=== PATIENT | male | born 1980 | race Caucasian/White ===

== ENCOUNTER 2016-07-03 20:14 | Emergency (ER) | payer SELFPAY ==
--- NOTE | 2016-07-03 20:24 | EDPRACDOC ---
- General Information Home Medications: Home Medications Aspirin (Enteric Coated) [Halfprin] 81 mg PO DAILY #90 tab 09/08/15 Pantoprazole Sodium [Protonix] 40 mg PO BID 02/09/16 Varenicline Tartrate [Chantix] 1 mg PO DAILY 02/09/16 Acetaminophen Tablet [TYLENOL Tablet] 650 mg PO Q6H PRN #100 tablet 02/17/16 Albuterol/Ipratropium Neb [Duoneb] 3 ml NEB Q2H PRN #120 nebu 02/17/16 Insulin Glargine [Lantus Pen] 30 unit SQ HS #1 02/17/16 Insulin, Regular [Humulin R] 15 units SQ TIDAC #1 vial 02/17/16 Nicotine [Nicoderm] 21 mg TOP Q24H #30 pat 02/17/16 Ondansetron HCl [Zofran] 4 mg PO Q8H PRN #15 tab 03/29/16 Promethazine HCl [Phenergan] 25 mg VA Q8H PRN #12 supp 03/29/16 Dicyclomine HCl [Bentyl] 10 mg PO Q6H PRN 05/30/16 Metoclopramide HCl [Reglan] 10 mg PO TID PRN 05/30/16 Promethazine [Phenergan] 25 mg PO Q6 PRN #10 tab 05/30/16 Allergies/Adverse Reactions: Allergies Allergy/AdvReac Type Severity Reaction Status Date / Time Penicillins Allergy Nausea/Vomi Verified 02/15/16 18:38 ting - 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 PER EMS BYSTANDERS REPORTED THAT PT HAS A LOT OF DIFFICULTY CONTROLLING BLOOD SUGAR, STATES BLOOD SUGAR IS "ALWAYS HIGH", STATES RECENTLY IN [place] WITH BLOOD SUGAR OF "2100" PER BYSTANDERS. ED Past Medical History - History Reviewed Yes Nurses notes reviewed and agree except as marked - Patient Medical History Cardiac History: Reports: Hypertension (Not on any antihypertensive medication with normal blood pressure.) Respiratory History: Reports: COPD (Not currently on any COPD medications.) GI/ History: Reports: Gastroesophageal Reflux Psychological History: Denies: Depression, Substance Use Disorder Systemic History: Reports: Diabetes (IDDM type 1 since 19 years of age. Frequent DKA.) Surgical History: Reports: Other (trigger-finger release R hand; wisdom teeth removed) - Family Medical History Reports: Hypertension (DAD; SISTER), Diabetes (SELF), Stroke (DAD), Cardiac Disorders (DAD; SISTER), Respiratory Disorders (Mother with COPD). Denies: Cancer - Social Medical History Smoking Status: Heavy tobacco smoker (5 or more cigarettes/day or daily pipe/ cigar) Social History: Denies: Substance Use Disorder ETOH: None Substance Abuse: None EDM Review of Systems - Review of Systems Constitutional: negative: Chills, Fever Eyes: negative: Blurred Vision, Double Vision Ears: negative: Drainage Throat: negative: Pain Nose: negative: Congestion, Discharge Respiratory: negative: Cough, Shortness of Breath, Wheezing Cardiovascular: negative: Chest Pain, Palpitations Gastrointestinal: negative: Diarrhea, Nausea, Pain, Vomiting Genitourinary: negative: Dysuria, Frequency Neurological: Changes in Orientation. negative: Dizziness, Headache, Numbness, Weakness Musculoskeletal: No Symptoms Reported Integumentary: No Symptoms Reported - Physical Exam Constitutional: Alert (Awake), No apparent distress Oriented to: Time, Person, Place Last recorded Vital Signs: Oxygen Pulse Oxygen Saturation O2 Device Oxygen Flow Rate Fraction of Inspired Oxygen ( FIO2) - HEENT Head: Normal ( normocephalic) Eye Exam: Normal (PERRL, EOMI, Sclera white) Oropharynx: Normal (Pharynx:Moist without exudate,Gums-no swelling) Tympanic Membrane: Normal ENT EAC: Normal TMJ: Normal Nose: No Symptoms Reported (septum midline) Neck: Normal (FROM, trachea at midline) - Respiratory/Cardiovascular Respiratory: Normal - CTA (BBS clear to auscultation without adventitious sounds ) Cardiovascular: Normal (RRR without murmur, gallop or rub) - GI Auscultation: Normal (NABS) Palpation: Normal (Soft,No rebound or guarding, non distended) Tenderness: Non tender Celaya's Sign: Negative - Musculoskeletal Back: Normal (Non-Tender) Extremities: Normal (Normal tone, Pulses 2+ No cyanosis or edema, FROM) - Integumentary Skin: Normal, Warm, Dry Lymphatics: Normal (no adenopathy) - Neurologic Memory Impaired: Normal Motor Function: Normal (Normal tone, Pulses 2+ No cyanosis or edema, FROM) Cranial Nerve: Normal (CN II-X11 intact sensation, strength 5/5) Cerebellar: Normal Mood Description: Normal Perception: Normal - Differential Diagnosis Dehydration, Diabetic Ketoacidosis, Gastritis, Gastroenteritis, Hyperglycemia, Hypoglycemia, UTI - Re-evaluation Re-evaluation 1 Re-evaluation Time: 22:06 (AROUSES TO NAME) Re-evaluation 2 Re-evaluation Time: 00:03 (ALERT AND ORIENTED, STATES WANTS TO GO HOME) - Results 07/03/16 20:51 07/03/16 20:51 07/04/16 00:03 Laboratory Results - last 24 hr 07/03/16 07/03/16 07/03/16 20:26 20:51 20:51 WBC 5.4 RBC 4.67 L Hgb 14.4 Hct 42.2 MCV 90 MCH 30.9 MCHC 34.2 RDW 13.5 Plt Count 196 MPV 8.6 Neut % (Auto) 70.2 Lymph % (Auto) 18.5 [place] % (Auto) 9.2 Eos % (Auto) 1.6 Baso % (Auto) 0.5 Absolute Neuts (auto) 3.78 Absolute Lymphs (auto) 0.97 PT INR APTT Sodium 138 Potassium 4.0 Chloride 103 Carbon Dioxide 29 Anion Gap 10 BUN 8 L Creatinine 0.60 L Estimated GFR (MDRD) > 60 Glucose 87 POC Capillary Glucose 97 Calculated Osmolality 263 L Calcium 8.6 Corrected Calcium 9.2 Total Bilirubin 0.7 AST 44 ALT 44 Alkaline Phosphatase 80 Troponin I < 0.01 [id number] Pept 29 Total Protein 6.5 Albumin 3.4 L Salicylates < 1.0 Acetaminophen < 10.0 07/03/16 07/03/16 20:51 21:45 WBC RBC Hgb Hct MCV MCH MCHC RDW Plt Count MPV Neut % (Auto) Lymph % (Auto) [place] % (Auto) Eos % (Auto) Baso % (Auto) Absolute Neuts (auto) Absolute Lymphs (auto) PT 11.2 INR 1.1 APTT 29.1 Sodium Potassium Chloride Carbon Dioxide Anion Gap BUN Creatinine Estimated GFR (MDRD) Glucose POC Capillary Glucose 198 H Calculated Osmolality Calcium Corrected Calcium Total Bilirubin AST ALT Alkaline Phosphatase Troponin I [id number] Pept Total Protein Albumin Salicylates Acetaminophen - EKG EKG #1 EKG Time: 20:46 -: Yes EKG interpreted by me Rate: bpm: 82 [place]: Normal Rhythm: NSR Block: None Hypertrophy: None ST: Nonsp Comparison: 03/28/16 (NO CHANGE) Decision Time to Discharge: 00:03 - Departure Disposition: Home Condition: Stable Final Diagnosis: Altered mental status Qualifiers: Altered mental status type: unspecified Qualified Code(s): R41.82 - Altered mental status, unspecified Diabetes mellitus Qualifiers: Diabetes mellitus type: type 1 Diabetes mellitus complication status: without complication Qualified Code(s): E10.9 - Type 1 diabetes mellitus without complications Instructions: Diabetes Mellitus Type 1 in Adults (ED) Referrals: None,No Provider [Primary Care Provider] - One Week Prescriptions: Continue Aspirin (Enteric Coated) [Halfprin] 81 mg PO DAILY #90 tab Pantoprazole Sodium [Protonix] 40 mg PO BID Varenicline Tartrate [Chantix] 1 mg PO DAILY Acetaminophen Tablet [TYLENOL Tablet] 650 mg PO Q6H PRN #100 tablet PRN Reason: Mild Pain Or Fever Above 100.4 Albuterol/Ipratropium Neb [Duoneb] 3 ml NEB Q2H PRN #120 nebu PRN Reason: Wheezing Insulin Glargine [Lantus Pen] 30 unit SQ HS #1 Nicotine [Nicoderm] 21 mg TOP Q24H #30 pat Insulin, Regular [Humulin R] 15 units SQ TIDAC #1 vial Ondansetron HCl [Zofran] 4 mg PO Q8H PRN #15 tab PRN Reason: Nausea/Vomiting Promethazine HCl [Phenergan] 25 mg VA Q8H PRN #12 supp PRN Reason: Nausea/Vomiting Dicyclomine HCl [Bentyl] 10 mg PO Q6H PRN PRN Reason: Abdominal Pain Metoclopramide HCl [Reglan] 10 mg PO TID PRN PRN Reason: Nausea/Vomiting Promethazine [Phenergan] 25 mg PO Q6 PRN #10 tab PRN Reason: Nausea/Vomiting Forms: Patient Discharge Instructions, ED Discharge Instructions Additional Instructions: REST, DRINK PLENTY OF FLUIDS, TAKE ALL OF YOUR MEDICATIONS BEFORE, RETURN TO THE ED FOR ANY WORSENING SYMPTOMS OR CONCERNS.
[2016-07-03] MEDS ORDERED: NS 1,000 ML IV ONE (20:26)
[2016-07-03 20:33] VITALS: TEMP 97.4; BMI 23.0
[2016-07-03 20:59] LABS: AUTOMATED BASOPHIL 0.5 % (0-2); AUTOMATED EOSINOPHIL 1.6 % (0-5); AUTOMATED LYMPH 18.5 % (17-44); AUTOMATED MONOCYTE 9.2 % (3-10); AUTOMATED NEUTROPHIL 70.2 % (45-76); MPV 8.6 fL (7.4-10.4)
[2016-07-03 21:14] LABS: BLOOD UREA NITROGEN 8 MG/DL (9-20); CALC CORRECTED 9.2 MG/DL (8.4-10.2); CALCIUM 8.6 MG/DL (8.4-10.2); CALCULATED OSMOLALITY 263 MOs/Kg (270-290); CHLORIDE 103 mEq/L (98-107); GLUCOSE 87 MG/DL (70-99); SODIUM LEVEL 138 mEq/L (137-146); TOTAL PROTEIN 6.5 G/DL (6.3-8.2)
--- NOTE | 2016-07-03 21:19 | DIRPT ---
CLINICAL DATA: Altered mental status. Combative and aggressive behavior. Uncontrolled diabetes. EXAM: CT HEAD WITHOUT CONTRAST TECHNIQUE: Contiguous axial images were obtained from the base of the skull through the vertex without intravenous contrast. COMPARISON: 10/20/2015 FINDINGS: No evidence of intracranial hemorrhage, brain edema, or other signs of acute infarction. No evidence of intracranial mass lesion or mass effect. No abnormal extraaxial fluid collections identified. Ventricles are normal in size. No skull abnormality identified. IMPRESSION: Negative noncontrast head CT. Electronically Signed By: Jose Joseph M.D. On: 07/03/2016 21:17
[2016-07-03 21:31] LABS: PARTIAL THROMB. TIME 29.1 SEC (22-35); PT-INR 1.1
--- NOTE | 2016-07-03 21:42 | DIRPT ---
CLINICAL DATA: Altered mental status. EXAM: PORTABLE CHEST 1 VIEW COMPARISON: 03/28/2016 FINDINGS: The heart size and mediastinal contours are within normal limits. Both lungs are clear. The visualized skeletal structures are unremarkable. IMPRESSION: No active disease. Electronically Signed By: Jose Joseph M.D. On: 07/03/2016 21:40
[2016-07-04] LABS: ALL NEG? NO
[2016-07-04 00:08] LABS: LEUKOCYTES/URINE NEG (NEGATIVE); MDMA* NEG (NEGATIVE); METHAMPHETAMINES *POSITIVE* (NEGATIVE); NITRITE/URINE NEG (NEGATIVE); OXYCODONE *POSITIVE* (NEGATIVE); RBC/URINE 0-2 (0-2); URINE OCCULT BLOOD NEG (NEG/TRACE); WBC/URINE 0-2 (0-2)
[2016-07-04 00:38] VITALS: BP 151/71; PULSE 101
[2016-07-04] MEDS ORDERED: LORAZEPAM 2 MG/ML VIAL ONE (02:25)
[2016-07-04] MEDS ORDERED: HALOPERIDOL 5 MG/ML VIAL ONE (02:25)
== END 2016-07-04 00:34 | disposition home or self-care (01) ==
LOC: ED 20:14
DX: E10.9 Type 1 diabetes mellitus without complications (principal); R41.82 Altered mental status, unspecified
CPT/HCPCS: 36415; 70450; 71010; 80053; 80307; 80329; 81001; 82962; 83880; 84484; 85025; 85610; 85730; 93005; 96360; 96361; 99283; J1630; J2060

== ENCOUNTER 2016-07-04 02:20 | Emergency (ER) | payer SELFPAY ==
[2016-07-04 02:25] VITALS: BMI 23.0
[2016-07-04] MEDS ORDERED: NS 1,000 ML IV ONE ×2 (02:29→03:52)
[2016-07-04] MEDS ORDERED: HALOPERIDOL 5 MG/ML VIAL IM ONE (02:30)
[2016-07-04] MEDS ORDERED: LORAZEPAM 2 MG/ML VIAL IM ONE (02:30)
--- NOTE | 2016-07-04 02:43 | EDPRACDOC ---
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 HE WAS INITIALLY HERE FOR CONFUSION AND COMBATIVE BEHAVIOR. HIS DRUG SCREEN WAS + FOR METH. PT WAS AWAKE AND ALERT WHEN D/C'D AND REQUESTED TO GO HOME. PT WAS FOUND WANDERING AROUND UPSTAIRS IN THE HOSPITAL. WHEN THE CHARGE NURSE CONFRONTED HIM, HE BECAME COMBATIVE AND AGITATED AGAIN. SECURITY AND ED STAFF HAD TO HOLD HIM DOWN TO PLACE HANDCUFFS AND RESTRAINTS DUE TO HIS AGITATION. PT UNABLE TO GIVE ANY HX. Symptoms began: Suddenly Duration: Since Onset Relevant History: Reports: Diabetes <Lin Muniz - Last Filed: 07/04/16 03:06> <Ernestine Chin - Last Filed: 07/04/16 08:21> - General Information Stated Complaint: OVERDOSE/VERY COMBATIVE Time Seen by Provider: 07/04/16 02:28 Home Medications: Home Medications Aspirin (Enteric Coated) [Halfprin] 81 mg PO DAILY #90 tab 09/08/15 Pantoprazole Sodium [Protonix] 40 mg PO BID 02/09/16 Varenicline Tartrate [Chantix] 1 mg PO DAILY 02/09/16 Acetaminophen Tablet [TYLENOL Tablet] 650 mg PO Q6H PRN #100 tablet 02/17/16 Albuterol/Ipratropium Neb [Duoneb] 3 ml NEB Q2H PRN #120 nebu 02/17/16 Insulin Glargine [Lantus Pen] 30 unit SQ HS #1 02/17/16 Insulin, Regular [Humulin R] 15 units SQ TIDAC #1 vial 02/17/16 Nicotine [Nicoderm] 21 mg TOP Q24H #30 pat 02/17/16 Ondansetron HCl [Zofran] 4 mg PO Q8H PRN #15 tab 03/29/16 Promethazine HCl [Phenergan] 25 mg PA Q8H PRN #12 supp 03/29/16 Dicyclomine HCl [Bentyl] 10 mg PO Q6H PRN 05/30/16 Metoclopramide HCl [Reglan] 10 mg PO TID PRN 05/30/16 Promethazine [Phenergan] 25 mg PO Q6 PRN #10 tab 05/30/16 Allergies/Adverse Reactions: Allergies Allergy/AdvReac Type Severity Reaction Status Date / Time Penicillins Allergy Nausea/Vomi Verified 02/15/16 18:38 ting ED Past Medical History - Patient Medical History Cardiac History: Reports: Hypertension (Not on any antihypertensive medication with normal blood pressure.) Respiratory History: Reports: COPD (Not currently on any COPD medications.) GI/ History: Reports: Gastroesophageal Reflux Psychological History: Denies: Depression, Substance Use Disorder Systemic History: Reports: Diabetes (IDDM type 1 since 19 years of age. Frequent DKA.) Surgical History: Reports: Other (trigger-finger release R hand; wisdom teeth removed) - Family Medical History Reports: Hypertension (DAD; SISTER), Diabetes (SELF), Stroke (DAD), Cardiac Disorders (DAD; SISTER), Respiratory Disorders (Mother with COPD). Denies: Cancer - Social Medical History Smoking Status: Heavy tobacco smoker (5 or more cigarettes/day or daily pipe/ cigar) Social History: Reports: Amphetamine Use. Denies: Substance Use Disorder ETOH: None Substance Abuse: Illicit Drugs Lives In: Home <Lin Muniz - Last Filed: 07/04/16 03:06> EDM Review of Systems - Review of Systems ROS Unobtainable: Yes Review of systems cannot be obtained due to the patient's medical condition <Lin Muniz - Last Filed: 07/04/16 03:06> - Physical Exam Constitutional: Agitated, Uncooperative, Writhing Oriented to: Unable to Test Last recorded Vital Signs: Oxygen Pulse Oxygen Saturation O2 Device Oxygen Flow Rate Fraction of Inspired Oxygen ( FIO2) - HEENT Head: Normal ( normocephalic) Eye Exam: Normal (PERRL, EOMI, Sclera white) Oropharynx: Normal (Pharynx:Moist without exudate,Gums-no swelling) ENT EAC: Normal TMJ: Normal Nose: No Symptoms Reported (septum midline) Neck: Normal (FROM, trachea at midline) - Respiratory/Cardiovascular Respiratory: Normal - CTA Cardiovascular: Tachycardia - GI Auscultation: Normal (NABS) Palpation: Normal (Soft,No rebound or guarding, non distended) Tenderness: Non tender Celaya's Sign: Negative - Musculoskeletal Back: Normal (Non-Tender) Extremities: Normal (Normal tone, Pulses 2+ No cyanosis or edema, FROM) - Integumentary Skin: Other (SKIN PICKING SCARS ALL OVER FACE) Lymphatics: Normal - Neurologic Memory Impaired: Unable to Test Motor Function: Normal Cranial Nerve: Unable to Test Cerebellar: Unable to Test Mood Description: Agitated, Combative <Lin Muniz - Last Filed: 07/04/16 03:06> - Physical Exam Last recorded Vital Signs: Last Vital Signs Temp 97.3 F L 07/04/16 02:25 Pulse 95 07/04/16 06:02 Resp 20 07/04/16 06:02 BP 121/79 07/04/16 06:02 Pulse Ox 97 07/04/16 06:02 Oxygen Pulse Oxygen Saturation 97 O2 Device Room Air Oxygen Flow Rate Fraction of Inspired Oxygen ( FIO2) <Ernestine Chin - Last Filed: 07/04/16 08:21> - Results 07/04/16 02:50 07/04/16 02:50 - EKG EKG #1 EKG Time: 02:59 -: Yes EKG interpreted by me Rate: bpm: 99 [place]: Normal Rhythm: NSR Block: None Hypertrophy: None ST: Normal <Lin Muniz - Last Filed: 07/04/16 03:06> - Re-evaluation Re-evaluation 2 Re-evaluation Time: 07:10 (I ASSUMED CARE FROM DR MUNIZ AT 0700. HISTORY OF AGITATION AND AMS ASSOC WITH METH / OXY ABUSE AND DM / HYPOGLYCEMIA. POOR PO INTAKE, RECURRENT HYPOGLYCEMIA. ) SLEEPING, VITALS WNL. AROUSES SOMEWHAT, BUT STILL SOMNELENT. HEENT: NC/AT, NO BRUISING OR ECCHYMOSIS. Re-evaluation 3 Re-evaluation Time: 08:18 (AMBULATE TO THE RESTROOM WITHOUT DIFFICULTY. NOW SITTING UP IN BED EATING A MEAL. NO COMPLAINTS.) General: Pleasant MALE No acute distress. Neuro: Alert Oriented, calm and cooperative HEENT: Normocephalic atraumatic. Sclerae nonicteric. Extraocular movements intact. Oral mucosa pink and moist. Neck: Supple. Nontender. Good range of motion. No masses. Trachea is midline. No cervical adenopathy. Lungs: Clear to auscultation. No rhonchi or wheezing. Heart: Regular rate and rhythm. No murmur. Abdomen: Soft, nontender, nondistended. No hepatosplenomegaly. No abdominal wall defects or masses. No guarding or rebound. Extremities: no cyanosis clubbing or edema. No palpable deformities. Skin: Warm and dry, no rashes AMS / DELERIUM RESOLVED. HYPOGLYCEMIA RESOLVED. SAFE FOR DISCHARGE. - Results 07/04/16 02:50 07/04/16 04:13 WBC 6.1 xk/uL (3.8-10.8) 07/04/16 02:50 RBC 4.73 xM/uL (4.70-6.10) 07/04/16 02:50 Hgb 14.6 g/dL (14.0-18.0) 07/04/16 02:50 Hct 43.8 % (42-52) 07/04/16 02:50 MCV 93 fL (80-94) 07/04/16 02:50 MCH 30.9 pg (27-32) 07/04/16 02:50 MCHC 33.4 g/dl (33-36) 07/04/16 02:50 RDW 13.7 % (11.5-14.5) 07/04/16 02:50 Plt Count 211 xk/uL (130-400) 07/04/16 02:50 MPV 8.6 fL (7.4-10.4) 07/04/16 02:50 Neut % (Auto) 68.3 % (45-76) 07/04/16 02:50 Lymph % (Auto) 20.4 % (17-44) 07/04/16 02:50 Yell % (Auto) 9.4 % (3-10) 07/04/16 02:50 Eos % (Auto) 1.2 % (0-5) 07/04/16 02:50 Baso % (Auto) 0.7 % (0-2) 07/04/16 02:50 Absolute Neuts (auto) 4.15 xk/uL (1.7-8.2) 07/04/16 02:50 Absolute Lymphs (auto) 1.22 xk/uL (0.65-4.75) 07/04/16 02:50 Sodium 139 mEq/L (137-146) 07/04/16 04:13 Potassium 4.0 mEq/L (3.5-5.1) 07/04/16 04:13 Chloride 108 mEq/L (98-107) H 07/04/16 04:13 Carbon Dioxide 24 mMOL/L (22-33) 07/04/16 04:13 Anion Gap 11 mEq/L (8-16) 07/04/16 04:13 BUN 7 MG/DL (9-20) L 07/04/16 04:13 Creatinine 0.60 MG/DL (0.66-1.25) L 07/04/16 04:13 Estimated GFR (MDRD) > 60 mL/min (>=60) 07/04/16 04:13 Glucose 88 MG/DL (70-99) 07/04/16 04:13 POC Capillary Glucose 56 MG/DL (70-99) L 07/04/16 06:18 Calculated Osmolality 265 MOs/Kg (270-290) L 07/04/16 04:13 Calcium 8.0 MG/DL (8.4-10.2) L 07/04/16 04:13 Corrected Calcium 9.1 MG/DL (8.4-10.2) 07/04/16 02:50 Total Bilirubin 0.6 MG/DL (0.2-1.3) 07/04/16 02:50 AST 48 IU/L (17-59) 07/04/16 02:50 ALT 40 IU/L (21-72) 07/04/16 02:50 Alkaline Phosphatase 87 IU/L (38-126) 07/04/16 02:50 Total Protein 7.0 G/DL (6.3-8.2) 07/04/16 02:50 Albumin 3.9 G/DL (3.5-5.0) 07/04/16 02:50 Plasma/Serum Ethyl Alc % (<0.01) 07/04/16 02:50 Lab Results 07/04/16 07/04/16 07/04/16 06:18 05:13 04:13 WBC RBC Hgb Hct MCV MCH MCHC RDW Plt Count MPV Neut % (Auto) Lymph % (Auto) Yell % (Auto) Eos % (Auto) Baso % (Auto) Absolute Neuts (auto) Absolute Lymphs (auto) Sodium 139 Potassium 4.0 Chloride 108 H Carbon Dioxide 24 Anion Gap 11 BUN 7 L Creatinine 0.60 L Estimated GFR (MDRD) > 60 Glucose 88 POC Capillary Glucose 56 L 51 L Calculated Osmolality 265 L Calcium 8.0 L Corrected Calcium Total Bilirubin AST ALT Alkaline Phosphatase Total Protein Albumin Plasma/Serum Ethyl Alc 07/04/16 07/04/16 07/04/16 02:50 02:50 02:35 WBC 6.1 RBC 4.73 Hgb 14.6 Hct 43.8 MCV 93 MCH 30.9 MCHC 33.4 RDW 13.7 Plt Count 211 MPV 8.6 Neut % (Auto) 68.3 Lymph % (Auto) 20.4 Yell % (Auto) 9.4 Eos % (Auto) 1.2 Baso % (Auto) 0.7 Absolute Neuts (auto) 4.15 Absolute Lymphs (auto) 1.22 Sodium 143 Potassium 3.9 Chloride 105 Carbon Dioxide 16 L Anion Gap 26 H BUN 7 L Creatinine 0.70 Estimated GFR (MDRD) > 60 Glucose 39 L* POC Capillary Glucose 69 L Calculated Osmolality 270 Calcium 9.0 Corrected Calcium 9.1 Total Bilirubin 0.6 AST 48 ALT 40 Alkaline Phosphatase 87 Total Protein 7.0 Albumin 3.9 Plasma/Serum Ethyl Alc <GiuseppeErnestine N - Last Filed: 07/04/16 08:21> <Lin Muniz - Last Filed: 07/04/16 03:06> - Departure Disposition: Home Education/Counseling Given To: Patient Education/Counseling Given Regarding: Diagnosis, Treatment, Prognosis <ChinErnestine N - Last Filed: 07/04/16 08:21> - Departure Final Diagnosis: Hypoglycemia associated with diabetes, Methamphetamine abuse Altered mental status, unspecified Qualifiers: Altered mental status type: delirium Qualified Code(s): R41.0 - Disorientation , unspecified Instructions: Managing Diabetes During Sick Days (ED), Diabetes and Exercise, Accidental Overdose Referrals: None,No Provider [Primary Care Provider] - One Week Prescriptions: No Action Aspirin (Enteric Coated) [Halfprin] 81 mg PO DAILY #90 tab Pantoprazole Sodium [Protonix] 40 mg PO BID Varenicline Tartrate [Chantix] 1 mg PO DAILY Acetaminophen Tablet [TYLENOL Tablet] 650 mg PO Q6H PRN #100 tablet PRN Reason: Mild Pain Or Fever Above 100.4 Albuterol/Ipratropium Neb [Duoneb] 3 ml NEB Q2H PRN #120 nebu PRN Reason: Wheezing Insulin Glargine [Lantus Pen] 30 unit SQ HS #1 Nicotine [Nicoderm] 21 mg TOP Q24H #30 pat Insulin, Regular [Humulin R] 15 units SQ TIDAC #1 vial Ondansetron HCl [Zofran] 4 mg PO Q8H PRN #15 tab PRN Reason: Nausea/Vomiting Promethazine HCl [Phenergan] 25 mg PA Q8H PRN #12 supp PRN Reason: Nausea/Vomiting Dicyclomine HCl [Bentyl] 10 mg PO Q6H PRN PRN Reason: Abdominal Pain Metoclopramide HCl [Reglan] 10 mg PO TID PRN PRN Reason: Nausea/Vomiting Promethazine [Phenergan] 25 mg PO Q6 PRN #10 tab PRN Reason: Nausea/Vomiting Forms: Patient Discharge Instructions, ED Discharge Instructions
[2016-07-04 02:47] VITALS: TEMP 97.3
[2016-07-04 03:01] LABS: AUTOMATED BASOPHIL 0.7 % (0-2); AUTOMATED EOSINOPHIL 1.2 % (0-5); AUTOMATED LYMPH 20.4 % (17-44); AUTOMATED MONOCYTE 9.4 % (3-10); AUTOMATED NEUTROPHIL 68.3 % (45-76); MPV 8.6 fL (7.4-10.4)
[2016-07-04 03:10] LABS: BLOOD UREA NITROGEN 7 MG/DL (9-20); CALC CORRECTED 9.1 MG/DL (8.4-10.2); CALCULATED OSMOLALITY 270 MOs/Kg (270-290); CHLORIDE 105 mEq/L (98-107); ETOH-MGDL < 10 mg/dL; SODIUM LEVEL 143 mEq/L (137-146)
[2016-07-04] MEDS ORDERED: DEXTROSE 25 GM/50 ML PFS IV ONE ×2 (03:13→06:20)
[2016-07-04] MEDS ORDERED: D5W 50 ML IV ONE (03:14)
[2016-07-04 03:17] LABS: GLUCOSE 39 MG/DL (70-99)
[2016-07-04 04:49] LABS: BLOOD UREA NITROGEN 7 MG/DL (9-20); CALCULATED OSMOLALITY 265 MOs/Kg (270-290); CHLORIDE 108 mEq/L (98-107); GLUCOSE 88 MG/DL (70-99); SODIUM LEVEL 139 mEq/L (137-146)
[2016-07-04 09:51] VITALS: BP 138/86; PULSE 83
== END 2016-07-04 09:51 | disposition home or self-care (01) ==
LOC: ED 02:20
DX: E11.649 Type 2 diabetes mellitus with hypoglycemia without coma (principal); F15.10 Other stimulant abuse, uncomplicated
CPT/HCPCS: 36415; 80048; 80053; 80307; 82962; 85025; 93005; 96361; 96372; 96374; 96376; 99285; J7060; E0710